=== PATIENT | female | born 1990 ===

== ENCOUNTER 2022-05-03 05:13 | Inpatient (IN) | payer BC ==
[2022-05-03] MEDS ORDERED: Sodium Chloride 0.9% 10 ML Syringe FLUSH PRN (05:21)
[2022-05-03] MEDS ORDERED: Citric Acid/Sodium Citrate Solution 30 ML Cup PO ONE (05:21)
[2022-05-03] MEDS ORDERED: Lidocaine 1% 50 ML MDV INJECT PRN (05:21)
[2022-05-03] MEDS ORDERED: Water For Irrigation,Sterile 1,000 ML Container IRR PRN (05:21)
[2022-05-03] MEDS ORDERED: Butorphanol 1 MG/ML SDV IVPUSH PRN (05:21)
[2022-05-03] MEDS ORDERED: Tranexamic Acid 1,000 MG in Sodium Chloride 0.9% 100 ML IV PRN (05:21)
[2022-05-03] MEDS ORDERED: Carboprost Tromethamine 250 MCG/1 ML Amp IM PRN (05:21)
[2022-05-03] MEDS ORDERED: ceFAZolin 2 GM in Premix Bag 1 BAG IV ONE (05:21)
[2022-05-03] MEDS ORDERED: Methylergonovine 0.2 MG/1 ML Amp IM PRN (05:21)
[2022-05-03] MEDS ORDERED: Sodium Chloride 0.9% 2.5 ML Syringe FLUSH PRN (05:21)
[2022-05-03] MEDS ORDERED: Misoprostol 200 MCG Tab PO PRN (05:21)
[2022-05-03] MEDS ORDERED: Sodium Chloride 0.9% 20 ML SDV IV PRN (05:21)
[2022-05-03] MEDS ORDERED: Oxytocin/0.9 % Sodium Chloride 30 UNIT/500 ML BAG IV SCH ×2 (05:30)
[2022-05-03] MEDS ORDERED: Lactated Ringers 1,000 ML IV SCH (05:30)
[2022-05-03] MEDS ORDERED: Lidocaine 2% 100 MG/5 ML Syringe ONE (06:37)
[2022-05-03] MEDS ORDERED: Morphine PF 10 MG/10 ML SDV ONE (06:37)
[2022-05-03] MEDS ORDERED: fentaNYL 100 MCG/2 ML SDV ONE (06:37)
[2022-05-03] MEDS ORDERED: ceFAZolin 1 GM Vial ONE ×2 (06:37)
[2022-05-03] MEDS ORDERED: Ondansetron 4 MG/2 ML SDV ONE ×2 (06:37)
[2022-05-03] MEDS ORDERED: Oxytocin 10 Units/1 ML SDV ONE ×3 (06:38)
[2022-05-03] MEDS ORDERED: Phenylephrine 1% 10 MG/ML SDV ONE (06:38)
[2022-05-03] MEDS: Lactated Ringers 1,000 ML IV SCH ×4 (06:41→18:54)
[2022-05-03] MEDS ORDERED: fentaNYL 100 MCG/2 ML SDV IVPUSH PRN ×2 (07:01)
[2022-05-03] MEDS ORDERED: ePHEDrine 50 MG/ML SDV IVPUSH PRN (07:01)
[2022-05-03] MEDS ORDERED: Morphine 4 MG/ML VIAL IVPUSH PRN (07:01)
[2022-05-03] MEDS ORDERED: Metoclopramide 10 MG/2 ML SDV IVPUSH PRN (07:01)
[2022-05-03] MEDS ORDERED: diphenhydrAMINE 50 MG/ML SDV IVPUSH PRN (07:01)
[2022-05-03] MEDS ORDERED: HYDROmorphone 1 MG/ML Syringe IVPUSH PRN (07:01)
[2022-05-03] MEDS ORDERED: Albuterol 0.083% 2.5 MG/3 ML Neb Soln NEB PRN (07:01)
[2022-05-03] MEDS ORDERED: Naloxone 0.4 MG/ML SDV IVPUSH PRN (07:01)
[2022-05-03] MEDS ORDERED: Acetaminophen/oxyCODONE 325-5 MG Tab PO PRN ×2 (07:01→09:35)
[2022-05-03] MEDS ORDERED: Ondansetron 4 MG/2 ML SDV IVPUSH PRN ×2 (07:01)
[2022-05-03] MEDS ORDERED: Ropivacaine 0.5% 5 MG/ML 30 ML SDV ONE (08:07)
[2022-05-03] MEDS ORDERED: Ketorolac 30 MG/ML SDV ONE (08:54)
[2022-05-03] MEDS ORDERED: Measles, Mumps & Rubella Vaccine 0.5 ML SDV SUBCUT ONE (09:35)
[2022-05-03] MEDS ORDERED: Bisacodyl 10 MG Supp RECTAL PRN (09:35)
[2022-05-03] MEDS ORDERED: Lanolin 100% Cream 7 GM Tube TOP PRN (09:35)
[2022-05-03] MEDS ORDERED: Misoprostol 200 MCG Tab RECTAL PRN (09:35)
[2022-05-03] MEDS: Ketorolac 30 MG/ML SDV IVPUSH SCH ×2 (12:32→17:51)
[2022-05-03] MEDS: Docusate Sodium 100 MG Cap PO SCH (20:49)
[2022-05-04] MEDS: Ketorolac 30 MG/ML SDV IVPUSH SCH ×3 (00:12→12:18)
[2022-05-04] MEDS: Docusate Sodium 100 MG Cap PO SCH ×2 (08:33→21:10)
[2022-05-04] MEDS ORDERED: Ibuprofen 800 MG Tab PO PRN (12:15)
[2022-05-05] MEDS: Acetaminophen/oxyCODONE 325-5 MG Tab PO PRN ×2 (04:39→09:40)
[2022-05-05] MEDS: Docusate Sodium 100 MG Cap PO SCH (09:40)
[2022-05-05] MEDS ORDERED: Measles, Mumps & Rubella Vaccine 0.5 ML SDV SUBCUT ONE (11:30)
== END 2022-05-05 12:10 | disposition home or self-care (01) | DRG 540 ==
LOC: MW.OB 05:13
PROVIDERS: ADMIT Obstetrics & Gynecology; ATTEND Obstetrics & Gynecology
PROC: 10D00Z1 Extraction of Products of Conception, Low, Open Approach (ICD-10-PCS; principal; 2022-05-03)
PROC: 3E0234Z Introduction of Serum, Toxoid and Vaccine into Muscle, Percutaneous Approach (ICD-10-PCS; 2022-05-05)
DX: O34.211 Maternal care for low transverse scar from previous cesarean delivery (principal); O69.81X0 Labor and delivery complicated by cord around neck, without compression, not applicable or unspecified; Z3A.39 39 weeks gestation of pregnancy; Z37.0 Single live birth; Z20.822 Contact with and (suspected) exposure to COVID-19; Z23 Encounter for immunization
CPT/HCPCS: 01961; 36415; 59025; 64488; 85027; 86592; 86850; 86900; 86901; A9270-GY; J0131; J0690; J1790; J1885; J2274; J2370; J2405; J2590; J2765; J2795; J3010; J7120; U0002